=== PATIENT | female | born 2000 | race Two or more races ===

== ENCOUNTER 2024-08-07 05:33 | Emergency (ER) | payer BC, OTHER, SELFPAY ==
[2024-08-07 05:35] VITALS: BMI 41.1
[2024-08-07 06:53] VITALS: BP 102/72; PULSE 105; RESP 16; TEMP 36.8; O2SAT 99
--- NOTE | 2024-08-07 06:59 | XR_ITS ---
Examination: Wrist, left 2 views Technique: Wrist AP, lateral 2 views Date and time of exam: August 07, 2024 0724 hours INDICATIONS: Injury to the wrist this morning, wrist pain FINDINGS: No acute fracture No dislocation. IMPRESSION: No acute fracture
--- NOTE | 2024-08-07 06:59 | XR_ITS ---
Examination: Right hand 2 views TECHNIQUE: AP lateral right hand 2 views Date and time: August 07, 2024 0724 hours INDICATIONS: Injury to hand this morning, hand pain FINDINGS: No acute fracture. No dislocation No foreign body Impression : No acute fracture
[2024-08-07] MEDS: HYDROcodone/APAP 5/325 TABLET 1 TAB PO ×2 (07:05→09:01)
[2024-08-07] MEDS: ONDANSETRON ODT 4 MG TABRAP PO (07:06)
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
[2024-08-07] MEDS: IBUPROFEN TAB 400 MG TABLET 800 MG PO (09:00)
== END 2024-08-07 09:07 | disposition home or self-care (01) ==
PROVIDERS: Emergency Provider Emergency Medicine; PCP Family Medicine
DX: S60.212A Contusion of left wrist, initial encounter (principal); S69.92XA Unspecified injury of left wrist, hand and finger(s), initial encounter; Y04.0XXA Assault by unarmed brawl or fight, initial encounter
CPT/HCPCS: 73100; 73120; 99283; Q0162; A9270